=== PATIENT | male | born 1950 | race Caucasian/White ===

== ENCOUNTER → 2019-02-01 15:01 | Outpatient (POV) | payer OTHER, SELFPAY | PROVIDERS: Visit Provider Dermatology | DX: Z00.00 Encounter for general adult medical examination without abnormal findings (principal) ==

== ENCOUNTER → 2021-02-05 14:58 | Outpatient (POV) | payer OTHER, SELFPAY | PROVIDERS: Visit Provider Dermatology | DX: Z00.00 Encounter for general adult medical examination without abnormal findings (principal) ==

== ENCOUNTER → 2021-06-05 07:28 | Outpatient (CLI) | payer MEDICARE, SELFPAY ==
[2021-06-05 08:37] LABS: Basophils # 0.1 K/mm3 (0-0.2); Basophils % 0.8 % (0.1-2.0); Eosinophils # 0.2 K/mm3 (0.0-0.4); Eosinophils % 2.6 % (0.1-12.0); Hematocrit 40.6 % (42.0-52.0); Hemoglobin 13.4 g/dL (14.1-18.0); Lymphocytes # 2.1 K/mm3 (0.7-4.5); Lymphocytes % 34.6 % (10-50); Mean Corpuscular HGB Conc 32.9 g/dL (31.8-35.4); Mean Corpuscular Hemoglobin 22.1 pg (27.0-31.2); Mean Corpuscular Volume 67.1 fl (80-94); Monocytes # 0.6 K/mm3 (0.1-1.0); Monocytes % 8.9 % (1.7-9.3); Neutrophils # 3.3 K/mm3 (1.8-7.8); Platelet Count 319 K/mm3 (142-424); Red Blood Count 6.05 M/mm3 (4.60-6.20); Red Cell Distribution Width 15.1 % (11.5-17.5); White Blood Count 6.1 K/mm3 (4.8-10.8)
[2021-06-05 09:24] LABS: Alanine Aminotransferase 30 U/L (12-78); Albumin Level 4.2 g/dl (3.5-5.0); Albumin/Globulin Ratio 1.6 (1.1-1.8); Alkaline Phosphatase 88 U/L (38-126); Anion Gap 9.1 mEq/L (5-15); Aspartate Amino Transferase 42 U/L (17-59); Bilirubin,Total 1.1 mg/dl (0.2-1.3); Blood Urea Nitrogen 12 mg/dl (9-20); Calcium 9.1 mg/dl (8.4-10.2); Carbon Dioxide 30 mmol/L (22.0-30.0); Chloride 100 mmol/L (98-107); Chol/HDL Ratio 3.7 (1-3.5); Cholesterol 201 mg/dl (140-200); Estimated Glomerular Filt Rate 84 ml/min (>60); GFR (African American) 101 ML/MIN (>60); Globulin 2.6 g/dL (1.3-3.2); Glucose 100 mg/dl (74-100); HDL Cholesterol 55 mg/dl (40-60); Potassium 4.1 mmoL/L (3.5-5.1); Sodium 135 mmol/L (136-145); Total Protein,Serum 6.8 g/dl (6.3-8.2); Triglycerides 115 mg/dl (30-150); VLDL Cholesterol 23 mg/dL (0-40)
[2021-06-05 09:36] LABS: Direct LDL Cholesterol 128.72 mg/dL (100-129)
[2021-06-05 10:58] LABS: Ferritin 258 ng/ml (17.9-464)
== END ==
PROVIDERS: Visit Provider Nurse Practitioner Family
DX: D56.3 Thalassemia minor (principal); E78.5 Hyperlipidemia, unspecified; E53.8 Deficiency of other specified B group vitamins
CPT/HCPCS: 36415; 80053; 80061; 82728; 82746; 85025

== ENCOUNTER 2025-01-28 12:24 | Emergency (ER) | payer MEDICARE, OTHER, SELFPAY ==
[2025-01-28 12:26] VITALS: BP 154/111; PULSE 75; RESP 18; TEMP 36.5; O2SAT 100; BMI 27.1
--- NOTE | 2025-01-28 12:49 | ED_ITS ---
Discharge Plan Disposition Patient Disposition: Home, Self-Care Prescriptions Prescriptions: No Action Metamucil (sugar) Powder 1 tbsp PO DAILY polyethylene glycol 3350 [Miralax] 17 gram powder in packet 17 g PO DAILY cyanocobalamin (vitamin B-12) 1,000 mcg/mL solution 100 mcg IM QMONTH Patient Comments: ADMINISTER 1 ML IN THE MUSCLE 1 TIME A MONTH diphenhydramine HCl [Benadryl Allergy] 25 mg tablet 25 mg PO HS PRN Referrals Follow up/Referrals: Meena Feliciano APRN [Primary Care Provider, Medical] - See instructions Activity Restrictions/Add. Instructions Additional Instructions/Restrictions: Use the erythromycin ointment on your right eye 3 times daily over the next 1 to 2 days until symptoms resolve. If you develop any new or worsening symptoms, or if you become concerned for your health for any reason, return to the emergency department for evaluation Clinical Impressions Clinical Impression: Foreign body in eyeball, right Print Language Print Language: Nigerien Discharge ED Provider: Eduin Andrade Adult HPI General Chief complaint: Eye Problems Stated complaint: piece of steel in rt eye Time Seen by Provider: 01/28/25 12:31 Mode of Arrival: Ambulatory Source of Information: Patient Description of Symptoms (Recalled from ER Triage Doc. by RN): jewels comes in to emergency department with complaints of steel in hius right eye. patient was working on his pool, wearing appropriate eye protection and still endorses something hit him in the eye. he did use contact solution to rinse his eye but still expresses he feels something in his eye. History of Present Illness HPI narrative: Todd Phillips is a 74y male who presents to the emergency department complaining of a foreign body in his right eye. 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 He states that he was wea ring safety sunglasses at the time so he is not sure how it ended up in his right eye. He did rinse his eye out for short time. After this but still feels like there is something stuck in his right eye. He denies any blurry vision or vision loss. Related Data Home Medications ?Medication ?Instructions ?Recorded ?Confirmed cyanocobalamin (vitamin B-12) 100 mcg IM QMONTH 12/14/23 1,000 mcg/mL injection solution diphenhydramine HCl 25 mg tablet 25 mg PO HS PRN 12/1312/14/23 (Benadryl Allergy) polyethylene glycol 3350 17 gram 17 g PO DAILY 4 12/14/23 oral powder packet (Miralax) psyllium seed (sugar) oral powder 1 tbsp PO DAILY 11/2112/14/23 (Metamucil (sugar) oral powder) Allergies Allergy/AdvReac Type Severity Reaction Status Date / Time Sulfa (Sulfonamide Allergy Mild Verified 12/14/23 11:27 Antibiotics) pencillin Allergy Mild Uncoded 12/14/23 11:27 [facility] Disclaimer: The information contained in this section may have been updated after the patient was seen, as this information can be updated by other users. Medical History (Updated 01/28/25 @ 12:49 by Eduin Andrade MD) Bilateral sensorineural hearing loss Irritation of left ear Histoplasmosis Thalassemia minor Diverticulosis Social History (Updated 12/14/23 @ 12:01 by Nilton Cárdenas III, MD) Smoking Status: Never smoker alcohol intake: never current occupational status: employed Travel in the last 8 weeks?: None Have you lived/traveled outside [place] in past 30 days?: No Contact w/someone who lives/traveled outside [place] past 30 days?: No Exposure to someone with infectious disease in past 14 days?: No Do you have a fever (greater than 100.4 F or 38 C)?: No Have you tested positive for COVID-19?: No Exposed to someone with COVID-19 in past 14 days?: No Do you have a sore throat?: No Do you have a cough?: No Do you have any weakness?: No Do you have any diarrhea?: No Are you experiencing any unusual bleeding?: No Do you have any muscle aches/pain?: No Do you have any abdominal pain?: No Are you experiencing loss of taste or smell?: No Other Medical History Have you received the Pneumonia Vaccine: Yes ROS Obtained: Yes Systems reviewed as appropriate & no additional complaints except as documented Physical Exam General General appearance: alert and in no apparent distress Head Head exam: atraumatic Eye Eye exam: Present normal appearance and other (Very small metallic foreign body on the surface of the cornea at the 6 o'clock position. Negative Amber sign. After removal of the foreign body with Q-tip, patient also had negative Amber sign. No evidence of corneal abrasion.) ENT ENT exam: Present normal external ear exam Neck Neck exam: Present full ROM Chest Chest inspection: Present symmetric chest wall rise Respiratory Respiratory exam: Present normal lung sounds bilaterally; Absent respiratory distress Cardiovascular Cardiovascular exam: Present regular rate and normal rhythm Abdominal Exam Abdominal exam: Present soft; Absent tenderness or guarding exam: Present deferred Extremities Exam Extremities exam: Present normal inspection Back Exam Back exam: Present normal inspection Neurological Exam Neurological exam: Present alert and oriented X3 Psychiatric Psychiatric exam: Present normal affect Skin Skin exam: Present warm and dry Medical Decision Making Medical Records Screening: Per USPSTF and CDC recommendations, given the prevalence of disease in our region, it is our hospital?s policy to screen for HIV and viral Hepatitis for all patients aged 18 and over and those with ongoing risk factors. Robert Inquiry Pt receiving controlled substance: No Vital Signs: 01/28/25 12:26 Temperature 97.7 F Temperature Source Oral Pulse Rate [Right Radial] 75 Respiratory Rate 18 Blood Pressure [Right Arm] 154/111 H Blood Pressure Mean [Right Arm] 125 Blood Pressure Source [Right Arm] Automatic Cuff Blood Pressure Position [Right Arm] Sitting 02 Sat by Pulse Oximetry 100 Oxygen Delivery Method Room Air Orders (Tests/Meds): ED MEDICATIONS Generic Name Dose Route Start Last Admin Trade Name Freq PRN Reason Stop Dose Admin Erythromycin 1 gm 01/28/25 12:47 Erythromycin Base 1 Gm Oint...G. OP 01/28/25 12:48 TID ONE Medical Decision Narrative: Todd Phillips is a 74y male who presents to the emergency department complaining of a foreign body in his right eye. 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 He states that he was wearing safety sunglasses at the time so he is not sure how it ended up in his right eye. He did rinse his eye out for short time. After this but still feels like there is something stuck in his right eye. He denies any blurry vision or vision loss. On arrival, patient is mildly hypertensive, heart rate within normal limits, breathing company on room air with appropriate oxygen saturation. Physical exam, as stated above, revealed an overall well appearing male in no distress. Visual moreira are grossly intact and he is able to read a sign across the room. On visual inspection of the eye, he has a small metallic foreign body around the 6 o'clock position. Fluorescein staining after tetracaine drops revealed negative Amber sign. No other significant findings. The foreign body was able to be removed with a wet Q-tip. Patient felt immediate relief of his symptoms after this. Repeat Durant lamp examination showed negative Amber sign. No obvious corneal abrasion. No foreign bodies appreciated in the eyelids. Given relief of symptoms and no evidence of globe rupture, so the patient is appropriate for discharge at this time with erythromycin ointment. Return precautions were given. All questions were answered. He demonstrated understanding and was in agreement this plan. He was then discharged in the emergency department in stable condition. Procedures Foreign Body Removal Time Out Performed: No Site: right and other (cornea) Description of foreign body: other (metallic object) Sedation/Analgesia: other (Tetracaine drops) Technique: other (Q-tip) Confirmed by:: direct visualization and patient report Complications: none Post-procedure exam: awake, alert, normal HR and normal O2 sat Critical Care Critical Care Time Critical Care Time: No
[2025-01-28 12:50] VITALS: BP 154/90; PULSE 84; RESP 20; TEMP 36.7; O2SAT 97
[2025-01-28] MEDS: FLUORESCEIN SODIUM 1MG STRIP 1 MG OP (12:52)
[2025-01-28] MEDS: ERYTHROMYCIN BASE 1 GM OINT...G. OP (12:52)
[2025-01-28] MEDS: TETRACAINE 0.5% OPTH SOL 15ML OP (12:52)
== END 2025-01-28 12:55 | disposition home or self-care (01) ==
PROVIDERS: Emergency Provider Student in an Organized Health Care Education/Training Program; PCP Nurse Practitioner Family
DX: T15.91XA Foreign body on external eye, part unspecified, right eye, initial encounter (principal); W44.D9XA Other magnetic metal objects entering into or through a natural orifice, initial encounter
CPT/HCPCS: 65222; 99283